=== PATIENT | male | born 2000 | race Hispanic/Latino ===

== ENCOUNTER → 2024-02-14 | Outpatient (CLI) | payer OTHER ==
[~2024-02-14] MED LIST: LIDOCAINE HCL 4% LTA SOL 4 ML VIAL TP ONE
== END | disposition home or self-care (01) ==
LOC: WHH 08:59
PROVIDERS: ATTEND Family Medicine
DX: T81.89XA Other complications of procedures, not elsewhere classified, initial encounter (principal); S31.819A Unspecified open wound of right buttock, initial encounter; I96 Gangrene, not elsewhere classified; I10 Essential (primary) hypertension; Z79.899 Other long term (current) drug therapy; X58.XXXA Exposure to other specified factors, initial encounter; Y93.89 Activity, other specified; Y92.89 Other specified places as the place of occurrence of the external cause; Y99.8 Other external cause status; Y83.8 Other surgical procedures as the cause of abnormal reaction of the patient, or of later complication, without mention of misadventure at the time of the procedure; Y92.238 Other place in hospital as the place of occurrence of the external cause
CPT/HCPCS: 99214; A6022; A4450; A6260

== ENCOUNTER → 2024-02-28 | Outpatient (CLI) | payer OTHER | END | disposition home or self-care (01) | LOC: WHH 09:09 | PROVIDERS: ATTEND Family Medicine | DX: T81.89XD Other complications of procedures, not elsewhere classified, subsequent encounter (principal); S31.819D Unspecified open wound of right buttock, subsequent encounter; I96 Gangrene, not elsewhere classified; X58.XXXD Exposure to other specified factors, subsequent encounter; Z79.899 Other long term (current) drug therapy; Y83.8 Other surgical procedures as the cause of abnormal reaction of the patient, or of later complication, without mention of misadventure at the time of the procedure | CPT/HCPCS: 99214 ==

== ENCOUNTER → 2024-03-13 | Outpatient (CLI) | payer OTHER | END | disposition home or self-care (01) | LOC: WHH 09:14 | PROVIDERS: ATTEND Family Medicine | DX: T81.89XD Other complications of procedures, not elsewhere classified, subsequent encounter (principal); S31.819D Unspecified open wound of right buttock, subsequent encounter; I96 Gangrene, not elsewhere classified; I10 Essential (primary) hypertension; Z79.899 Other long term (current) drug therapy; X58.XXXD Exposure to other specified factors, subsequent encounter; Y83.8 Other surgical procedures as the cause of abnormal reaction of the patient, or of later complication, without mention of misadventure at the time of the procedure | CPT/HCPCS: 99214; A6022; A4450 ==

== ENCOUNTER → 2024-03-20 | Outpatient (CLI) | payer OTHER | END | disposition home or self-care (01) | LOC: WHH 09:01 | PROVIDERS: ATTEND Family Medicine | DX: T81.89XD Other complications of procedures, not elsewhere classified, subsequent encounter (principal); S31.819D Unspecified open wound of right buttock, subsequent encounter; I96 Gangrene, not elsewhere classified; I10 Essential (primary) hypertension; Z79.899 Other long term (current) drug therapy; X58.XXXD Exposure to other specified factors, subsequent encounter; Y83.8 Other surgical procedures as the cause of abnormal reaction of the patient, or of later complication, without mention of misadventure at the time of the procedure | CPT/HCPCS: 99214 ==

== ENCOUNTER → 2024-03-27 | Outpatient (CLI) | payer OTHER | END | disposition home or self-care (01) | LOC: WHH 09:10 | PROVIDERS: ATTEND Family Medicine | DX: T81.89XD Other complications of procedures, not elsewhere classified, subsequent encounter (principal); S31.819D Unspecified open wound of right buttock, subsequent encounter; I96 Gangrene, not elsewhere classified; I10 Essential (primary) hypertension; Z79.899 Other long term (current) drug therapy; X58.XXXD Exposure to other specified factors, subsequent encounter; Y83.8 Other surgical procedures as the cause of abnormal reaction of the patient, or of later complication, without mention of misadventure at the time of the procedure | CPT/HCPCS: 99214 ==

== ENCOUNTER → 2024-04-03 | Outpatient (CLI) | payer OTHER ==
[~2024-04-03] MED LIST changes: +HONEY 1 APPL/ML TUBE TP ONE; -LIDOCAINE HCL 4% LTA SOL 4 ML VIAL TP ONE
== END | disposition home or self-care (01) ==
LOC: WHH 10:30
PROVIDERS: ATTEND Family Medicine
DX: T81.89XD Other complications of procedures, not elsewhere classified, subsequent encounter (principal); S31.819D Unspecified open wound of right buttock, subsequent encounter; I96 Gangrene, not elsewhere classified; I10 Essential (primary) hypertension; Z79.899 Other long term (current) drug therapy; X58.XXXD Exposure to other specified factors, subsequent encounter; Y83.8 Other surgical procedures as the cause of abnormal reaction of the patient, or of later complication, without mention of misadventure at the time of the procedure
CPT/HCPCS: 99214

== ENCOUNTER → 2024-04-17 | Outpatient (CLI) | payer OTHER | END | disposition home or self-care (01) | LOC: WHH 10:19 | PROVIDERS: ATTEND Family Medicine | DX: T81.89XD Other complications of procedures, not elsewhere classified, subsequent encounter (principal); S31.819D Unspecified open wound of right buttock, subsequent encounter; I96 Gangrene, not elsewhere classified; I10 Essential (primary) hypertension; Z79.899 Other long term (current) drug therapy; X58.XXXD Exposure to other specified factors, subsequent encounter; Y83.8 Other surgical procedures as the cause of abnormal reaction of the patient, or of later complication, without mention of misadventure at the time of the procedure | CPT/HCPCS: 99214 ==

== ENCOUNTER → 2024-04-24 | Outpatient (CLI) | payer OTHER | END | disposition home or self-care (01) | LOC: WHH 10:07 | PROVIDERS: ATTEND Family Medicine | DX: T81.89XD Other complications of procedures, not elsewhere classified, subsequent encounter (principal); S31.819D Unspecified open wound of right buttock, subsequent encounter; I96 Gangrene, not elsewhere classified; I10 Essential (primary) hypertension; Z79.899 Other long term (current) drug therapy; Y83.8 Other surgical procedures as the cause of abnormal reaction of the patient, or of later complication, without mention of misadventure at the time of the procedure | CPT/HCPCS: 99214; A4450 ==

== ENCOUNTER → 2024-05-01 | Outpatient (CLI) | payer OTHER | END | disposition home or self-care (01) | LOC: WHH 10:04 | PROVIDERS: ATTEND Family Medicine | DX: T81.89XD Other complications of procedures, not elsewhere classified, subsequent encounter (principal); S31.819D Unspecified open wound of right buttock, subsequent encounter; I96 Gangrene, not elsewhere classified; I10 Essential (primary) hypertension; Z79.899 Other long term (current) drug therapy; X58.XXXD Exposure to other specified factors, subsequent encounter; Y83.8 Other surgical procedures as the cause of abnormal reaction of the patient, or of later complication, without mention of misadventure at the time of the procedure | CPT/HCPCS: 99214; A6206 ==

== ENCOUNTER → 2024-05-08 | Outpatient (CLI) | payer OTHER | END | disposition home or self-care (01) | LOC: WHH 10:43 | PROVIDERS: ATTEND Family Medicine | DX: T81.31XD Disruption of external operation (surgical) wound, not elsewhere classified, subsequent encounter (principal); S31.819D Unspecified open wound of right buttock, subsequent encounter; I96 Gangrene, not elsewhere classified; I10 Essential (primary) hypertension; Z79.899 Other long term (current) drug therapy; X58.XXXD Exposure to other specified factors, subsequent encounter; Y83.8 Other surgical procedures as the cause of abnormal reaction of the patient, or of later complication, without mention of misadventure at the time of the procedure | CPT/HCPCS: 99214 ==